=== PATIENT | female | born 1975 | race Caucasian/White ===

== ENCOUNTER 2021-01-10 05:17 | Day surgery (SDC) | payer OTHER ==
[~2021-01-10] VITALS: Ht 168 cm; Wt 91.0 kg
[~2021-01-10 05:17] MED LIST: BIOTIN5000 MCG PO; DICLOFENAC SODI75 MG PO; DULERA 200 MCG8.8 GM INH; HAIR, SKIN AND1 EACH PO; HCTZ12.5 MG PO; HYDROXYZINE PAM50 M1 PO; NAPROXEN500 MG PO; NORCO 5-325 TA1 EACH PO; PRILOSEC20 MG PO; PROZAC20 MG PO; TYLENOL ARTHRI650 MG PO; WOMEN MULTIVIT1 EACH PO
[2021-01-10 05:50] LABS: HCG (URINE) SCREEN NEGATIVE (NEGATIVE)
[2021-01-10] MEDS ORDERED: PERCOCET 5-3251 EACH PO (06:50)
[2021-01-11 06:27] LABS: BASOPHIL 0.2 % (0-2); EOSINOPHIL 0 % (0-5); HCT 28.6 % (37.0-47.0); HGB 9.3 g/dl (12.5-16.0); LYMPHOCYTE 8.5 % (15-48); MCHC 32.5 g/dL (32.0-36.0); MCV 92.3 fL (78.0-100.0); MONOCYTE 9.3 % (0-12); NEUTROPHIL 81.6 % (41-80); NRBC 0; PLT 305 K/uL (150-400); RDW 12.6 % (11.5-14.0); WBC 11.3 K/uL (4.0-10.5)
[2021-01-11 06:51] LABS: BUN/CREAT RATIO (CALC) 17.7 RATIO; CREATININE 0.62 mg/dL (0.51-0.95); POTASSIUM 4.2 mmol/L (3.5-5.1)
[2021-01-11] MEDS ORDERED: ASPIRIN81 MG PO (09:41)
[2021-01-11] MEDS ORDERED: FEOSOL325 MG PO (09:41)
== END 2021-01-11 13:05 | disposition home health service (06) ==
LOC: FAS 05:17 → FMS 07:51 → FAS 01-11 13:05
PROVIDERS: Anesthesiology; Orthopaedic Surgery
DX: M17.12 Unilateral primary osteoarthritis, left knee (principal); M21.062 Valgus deformity, not elsewhere classified, left knee; J45.909 Unspecified asthma, uncomplicated; K21.9 Gastro-esophageal reflux disease without esophagitis; F41.9 Anxiety disorder, unspecified; Z20.822 Contact with and (suspected) exposure to COVID-19; Z87.19 Personal history of other diseases of the digestive system; Z98.51 Tubal ligation status; Z98.890 Other specified postprocedural states
CPT/HCPCS: 36415; 73560; 80048; 84703; 85025; 86850; 86900; 86901; 94010; 94640; 94762; 97116; 97162; 97166; 97530-GP; 97535; C1713; C1776; J0171; J0697; J1100; J1885; J2250; J2270; J2405; J2704; J2795; J3010; J7120

== ENCOUNTER 2021-02-24 11:48 | Emergency (ER) | payer OTHER ==
[~2021-02-24 11:48] MED LIST changes: +ASPIRIN81 MG PO; +FEOSOL325 MG PO; +PERCOCET 5-3251 EACH PO
[2021-02-24 13:10] LABS: BASOPHIL 0.4 % (0-2); HCT 36.9 % (37.0-47.0); HGB 11.5 g/dl (12.5-16.0); LYMPHOCYTE 9.9 % (15-48); MCH 27.8 pg (25.0-31.0); MCHC 31.2 g/dL (32.0-36.0); MCV 89.3 fL (78.0-100.0); MONOCYTE 9.7 % (0-12); MPV 9.2 fL (6.0-9.5); NEUTROPHIL 78.5 % (41-80); NRBC 0; PLT 527 K/uL (150-400); RBC 4.13 M/uL (4.20-5.40); RDW 12.9 % (11.5-14.0); WBC 11.7 K/uL (4.0-10.5)
[2021-02-24 13:27] LABS: ALBUMIN 3.6 g/dL (3.4-5.0); BILIRUBIN - TOTAL 0.4 mg/dL (0.2-1.0); BUN/CREAT RATIO (CALC) 12.8 RATIO; CREATININE 0.78 mg/dL (0.51-0.95); GLOBULIN (CALCULATION) 4.8 g/dL; POTASSIUM 3.5 mmol/L (3.5-5.1); TOTAL PROTEIN 8.4 g/dL (6.4-8.2)
[2021-02-24] MEDS ORDERED: BACTRIM DS TAB1 EACH PO (17:01)
== END 2021-02-24 18:30 | disposition home or self-care (01) ==
LOC: FER 11:48
PROVIDERS: Emergency Medicine
DX: L02.416 Cutaneous abscess of left lower limb (principal); L03.116 Cellulitis of left lower limb; J45.909 Unspecified asthma, uncomplicated
CPT/HCPCS: 36415; 80053; 85025; 87070; 87077; 87205; 96365; 96366; J3370; J7050

== ENCOUNTER 2021-12-26 21:46 | Emergency (ER) | payer OTHER ==
[~2021-12-26 21:46] MED LIST changes: +BACTRIM DS TAB1 EACH PO
[2021-12-26 23:45] LABS: BASOPHIL 1.1 % (0-2); EOSINOPHIL 3.1 % (0-5); HCT 22.9 % (37.0-47.0); LYMPHOCYTE 22.2 % (15-48); MCHC 27.5 g/dL (32.0-36.0); MCV 69.2 fL (78.0-100.0); MONOCYTE 10.5 % (0-12); MPV 9.7 fL (6.0-9.5); NEUTROPHIL 62.8 % (41-80); NRBC 0; PLT 423 K/uL (150-400); RBC 3.31 M/uL (4.20-5.40); RDW 17.7 % (11.5-14.0); WBC 7.1 K/uL (4.0-10.5)
[2021-12-27 00:05] LABS: ALBUMIN 3.9 g/dL (3.4-5.0); BILIRUBIN - TOTAL 0.3 mg/dL (0.2-1.0); BUN/CREAT RATIO (CALC) 19.8 RATIO; CREATININE 0.81 mg/dL (0.51-0.95); GLOBULIN (CALCULATION) 3.9 g/dL; POTASSIUM 3.3 mmol/L (3.5-5.1); TOTAL PROTEIN 7.8 g/dL (6.4-8.2)
[2021-12-27 00:07] LABS: HGB 6.3 g/dl (12.5-16.0)
[2021-12-27 01:40] LABS: FOLIC ACID (SERUM) 8.7 ng/mL (8.6-58.9)
[2021-12-27 04:38] LABS: INFLUENZA A NAA NEGATIVE (NEGATIVE)
[2021-12-27 04:40] LABS: CORONAVIRUS 2019 SARS-COV-2 POSITIVE (NEGATIVE)
[2021-12-27 09:23] LABS: HCT 25.5 % (37.0-47.0); HGB 7.5 g/dL (12.5-16.0)
[2021-12-27] MEDS ORDERED: FEOSOL325 MG PO (10:13)
== END 2021-12-27 10:51 | disposition home or self-care (01) ==
LOC: FER 21:46
PROVIDERS: Emergency Medicine Emergency Medical Services; Physician Assistant
DX: D64.9 Anemia, unspecified (principal); M25.512 Pain in left shoulder; U07.1 COVID-19; J45.909 Unspecified asthma, uncomplicated; F17.200 Nicotine dependence, unspecified, uncomplicated
CPT/HCPCS: 36415; 36430; 71046; 80053; 82607; 82728; 82746; 83540; 83550; 83880; 84484; 85014; 85018; 85025; 86850; 86900; 86901; 86922; 93005; J1885; J7030; P9016; U0002